=== PATIENT | female | born 1940 | race Caucasian/White ===

== ENCOUNTER → 2016-09-13 | Outpatient (CLI) | payer OTHER ==
--- NOTE | 2016-09-13 17:42 | DX ---
DEXA Bone Mineral Densitometry Clinical Indications: 75-year-old postmenopausal female with suspected estrogen deficiency low bone mineral density versus osteoporosis. M 85.80, Z 13.820 Comparison: 2000. Technique: Bone Mineral Densitometry (BMD) by Dual Energy X-Ray Absorptiometry (DEXA) was performed utilizing the [employer] scanner. The lumbar spine was evaluated in the AP projection. Bilateral hips and one forearm were evaluated in the AP projection. Vertebral fracture assessment was also per formed. AP Lumbar Spine: The L1, L2, L3 and L4 vertebral bodies are evaluated. BMD: 1.023 gm/cm2 T-score: - 1.4 SD Z-score: 0.4 SD Statistical interval decrease in bone mineral density since most recent study. AP Left forearm BMD: 0.647 gm/cm2 T-score: - 2.6 SD Z-score: - 0.4 SD Vertebral Fracture Assessment: No significant fracture deformity. Conclusion: 1. Considering the lowest measured site, the patient is osteoporotic and is at increased risk for fra cture. 2. Statistical interval decrease in bone mineral density since most recent study. 3. Given the lowest measured site is the forearm, recommend excluding hyperparathyroidism as etiology of osteoporosis. Recommendations: 1. If not previously performed, consider excluding secondary metabolic causes of bone loss (reported to be present in as many as 30% of patients with normal Z scores). Basic laboratory evaluation might include blood chemistries (calcium, phosphorus, alkaline phosphatase, liver function tests, creatinin e, total protein), complete blood count, serum 25-OH- vitamin D3 level, 24-hour urine calcium, ser um TSH and serum PTH. Targeted laboratory testing based on individual patient circumstances might inc lude serum electrophoresis (SPEP or UPEP), anti-tissue transglutaminase antibody levels (celiac dise ase) , serum bone specific alkaline phosphatase, bone turnover markers (urine, serum) or fibroblast g rowth factor 23 (FGF 23)(evaluate for unexplained osteomalacia). 2. If secondary causes are excluded, then consider initiating treatment with a bisphosphonate (such a s Fosamax, Actonel or Boniva). If the patient is unable to use an oral bisphosphonate, another agent such as IV bisphosphonates (Boniva or Reclast), teriparatide (Forteo), a selective estrogen receptor modulator (Evista) or denosumab ( anti RANKL monoclonal antibody) might be considered. 3. If antiresorptive therapy is initiated and if clinically indicated, consider obtaining a baseline and 3 month followup bone resorption marker (NTX, CTX, TRAP5b or Pyridinoline, deoxypyridinoline) to monitor the therapeutic effect. 4. Check serum hydroxy vitamin D3 level (optimal > 50 ng/ml). 5. Osteoporosis prevention and treatment begins by modifying risk factors. The patient should be enco uraged to participate in a regular exercise program that includes weightbearing and muscle strengthen ing regimens, as is clinically appropriate. 6. Recommend follow-up DEXA in 2 years to assess the efficacy of pharmacologic intervention and/or co rrection of appropriate secondary cause.
== END ==
LOC: FIMAGING 13:24
PROVIDERS: ATTEND Internal Medicine
DX: M81.0 Age-related osteoporosis without current pathological fracture (principal)

== ENCOUNTER → 2018-05-06 | Outpatient (CLI) | payer OTHER | LOC: FIMAGING 09:02 | PROVIDERS: ATTEND Internal Medicine | DX: Z13.820 Encounter for screening for osteoporosis (principal); M85.89 Other specified disorders of bone density and structure, multiple sites; M81.0 Age-related osteoporosis without current pathological fracture; Z78.0 Asymptomatic menopausal state ==